=== PATIENT | female | born 1990 | race Caucasian/White ===

== ENCOUNTER 2020-02-09 10:59 | Outpatient (CLI) | payer OTHER, SELFPAY ==
[2020-02-09 11:58] LABS: Alanine Aminotransferase 16 U/L (4-35); Albumin Level 4.5 g/dL (3.5-5.1); Alkaline Phosphatase 58 U/L (38-126); Anion Gap 7 mmol/L (8-16); Aspartate Amino Transferase 24 U/L (14-36); Bilirubin,Total 0.5 mg/dL (0.2-1.3); Blood Urea Nitrogen 9 mg/dL (7-17); Calcium 9.6 mg/dL (8.4-10.2); Carbon Dioxide 29 mmol/L (22-30); Chloride 104 mmol/L (98-107); Estimated Glomerular Filt Rate > 60; Glucose 92 mg/dL (65-105); Potassium 4.1 mmol/L (3.4-5.0); Sodium 140 mmol/L (137-145)
[2020-02-11 23:18] LABS: Lamotrigine Lamictal 9.7 mcg/mL (4.0-18.0)
== END 2020-02-09 11:00 | disposition home or self-care (01) ==
DX: G40.309 Generalized idiopathic epilepsy and epileptic syndromes, not intractable, without status epilepticus (principal)
CPT/HCPCS: 36415; 80053; 80175

== ENCOUNTER 2020-02-14 17:14 | Outpatient (CLI) | payer OTHER, SELFPAY ==
[2020-02-14 17:38] LABS: Basophils Absolute Auto 0.1 K/mm3 (0.0-0.1); Basophils Percent Auto 0.8 % (0.2-1.2); Eosinophils Absolute Auto 0.4 K/mm3 (0-0.3); Eosinophils Percent Auto 3.9 % (0-4.4); Hematocrit 40.9 % (37.0-47.0); Hemoglobin 14.1 g/dL (12.0-15.0); Immature Granulocyte Absolute 0.03 K/mm3 (0.00-0.031); Immature Granulocyte Percent A 0.3 % (0-0.5); Lymphocytes Percent Auto 25.3 % (18.3-44.2); Mean Corpuscular HGB Conc 34.5 g/dl (32-36); Mean Corpuscular Hemoglobin 31.4 pg (26-34); Mean Corpuscular Volume 91.1 fl (80-100); Mean Platelet Volume 9.5 fl (7.4-10.4); Monocytes Absolute Auto 0.7 K/mm3 (0.1-0.6); Monocytes Percent Auto 6.3 % (2.6-8.5); Neutrophils Absolute Auto 6.5 K/mm3 (1.3-6.7); Neutrophils Percent Auto 63.4 % (45.5-73.1); Platelet Count Result 289 k/mm3 (150-375); Red Blood Count 4.49 M/mm3 (4.2-5.4); Red Cell Distribution Width 12.4 % (11.5-14.5); White Blood Count 10.3 K/mm3 (4.5-10.0)
[2020-02-14 17:50] LABS: Alanine Aminotransferase 15 U/L (4-35); Albumin Level 4.5 g/dL (3.5-5.1); Alkaline Phosphatase 63 U/L (38-126); Anion Gap 10 mmol/L (8-16); Aspartate Amino Transferase 23 U/L (14-36); Bilirubin,Total 0.7 mg/dL (0.2-1.3); Blood Urea Nitrogen 14 mg/dL (7-17); Carbon Dioxide 22 mmol/L (22-30); Chloride 106 mmol/L (98-107); Estimated Glomerular Filt Rate > 60; Glucose 89 mg/dL (65-105); Potassium 3.8 mmol/L (3.4-5.0); Sodium 138 mmol/L (137-145)
[2020-02-17 11:36] LABS: Lamotrigine Lamictal 5.9 mcg/mL (4.0-18.0)
== END 2020-02-14 17:15 | disposition home or self-care (01) ==
DX: G40.309 Generalized idiopathic epilepsy and epileptic syndromes, not intractable, without status epilepticus (principal)
CPT/HCPCS: 36415; 80053; 80175; 80203; 85025

== ENCOUNTER 2020-08-09 14:12 | Outpatient (CLI) | payer OTHER, SELFPAY ==
[2020-08-09 14:48] LABS: Basophils Absolute Auto 0.1 K/mm3 (0.0-0.1); Basophils Percent Auto 0.6 % (0.2-1.2); Eosinophils Absolute Auto 0.2 K/mm3 (0-0.3); Eosinophils Percent Auto 2.8 % (0-4.4); Hematocrit 40.1 % (37.0-47.0); Hemoglobin 13.4 g/dL (12.0-15.0); Immature Granulocyte Absolute 0.03 K/mm3 (0.00-0.031); Immature Granulocyte Percent A 0.4 % (0-0.5); Lymphocytes Absolute Auto 2.46 K/mm3 (0.9-3.2); Lymphocytes Percent Auto 29.5 % (18.3-44.2); Mean Corpuscular HGB Conc 33.4 g/dl (32-36); Mean Corpuscular Hemoglobin 31.1 pg (26-34); Mean Platelet Volume 9.5 fl (7.4-10.4); Monocytes Absolute Auto 0.6 K/mm3 (0.1-0.6); Monocytes Percent Auto 6.6 % (2.6-8.5); Neutrophils Percent Auto 60.1 % (45.5-73.1); Platelet Count Result 291 k/mm3 (150-375); Red Blood Count 4.31 M/mm3 (4.2-5.4); Red Cell Distribution Width 12.6 % (11.5-14.5); White Blood Count 8.3 K/mm3 (4.5-10.0)
[2020-08-09 14:58] LABS: Alanine Aminotransferase 16 U/L (4-35); Albumin Level 4.9 g/dL (3.5-5.1); Alkaline Phosphatase 60 U/L (38-126); Anion Gap 11 mmol/L (8-16); Aspartate Amino Transferase 33 U/L (14-36); Bilirubin,Total 0.4 mg/dL (0.2-1.3); Blood Urea Nitrogen 13 mg/dL (7-17); Calcium 9.8 mg/dL (8.4-10.2); Carbon Dioxide 28 mmol/L (22-30); Chloride 105 mmol/L (98-107); Estimated Glomerular Filt Rate > 60; Glucose 86 mg/dL (65-105); Potassium 3.7 mmol/L (3.4-5.0); Sodium 144 mmol/L (137-145)
[2020-08-11 22:52] LABS: Lamotrigine Lamictal 3.9 mcg/mL (4.0-18.0)
== END 2020-08-09 14:13 | disposition home or self-care (01) ==
DX: G40.309 Generalized idiopathic epilepsy and epileptic syndromes, not intractable, without status epilepticus (principal); Z51.81 Encounter for therapeutic drug level monitoring; Z79.899 Other long term (current) drug therapy
CPT/HCPCS: 36415; 80053; 80175; 80203; 85025

== ENCOUNTER 2020-12-23 08:36 | Outpatient (CLI) | payer OTHER, SELFPAY ==
--- NOTE | ~2020-12-23 | US_ITS ---
US OB <= 14 weeks fetus DATE: 12/23/2020 09:10 INDICATION: Gestational age determination TECHNIQUE: Real-time imaging and Doppler analysis COMPARISON: None FINDINGS: The uterus measures 10.6 cm height, 9.1 cm transverse and 7.6 cm anteroposterior dimension. Live mon intrauterine gestation is identified, with yolk sac and pole. heart rate of 171 bpm. [place]-rump length measures 3.32 cm, consistent with estimated gestational age of 10 weeks 2 days +/- 6 days; BREANNA: 07/19/2021. No pelvic mass or abnormal pelvic fluid collection is evident. IMPRESSION: Estimated gestational age of 10 weeks 2 days +/- 6 days; BREANNA: 07/19/2021 Reviewed, dictated and finalized at [facility]. Reviewed, dictated and finalized at [facility]. IMPRESSION: Estimated gestational age of 10 weeks 2 days +/- 6 days; BREANNA: 2021
== END 2020-12-23 08:37 | disposition home or self-care (01) ==
LOC: ANHIMG 08:44
PROVIDERS: PCP Internal Medicine; Visit Provider Obstetrics & Gynecology
DX: N91.2 Amenorrhea, unspecified (principal); Z3A.10 10 weeks gestation of pregnancy
CPT/HCPCS: 76801

== ENCOUNTER 2021-01-04 10:31 | Outpatient (CLI) | payer OTHER, SELFPAY ==
[2021-01-04 11:21] LABS: Basophils Absolute Auto 0.1 K/mm3 (0.0-0.1); Basophils Percent Auto 0.5 % (0.2-1.2); Eosinophils Absolute Auto 0.2 K/mm3 (0-0.3); Eosinophils Percent Auto 2.3 % (0-4.4); Hematocrit 35.7 % (37.0-47.0); Hemoglobin 12.5 g/dL (12.0-15.0); Immature Granulocyte Absolute 0.03 K/mm3 (0.00-0.031); Immature Granulocyte Percent A 0.3 % (0-0.5); Lymphocytes Absolute Auto 2.21 K/mm3 (0.9-3.2); Lymphocytes Percent Auto 24.1 % (18.3-44.2); Mean Corpuscular Hemoglobin 32.6 pg (26-34); Mean Platelet Volume 9.8 fl (7.4-10.4); Monocytes Absolute Auto 0.4 K/mm3 (0.1-0.6); Monocytes Percent Auto 4.8 % (2.6-8.5); Neutrophils Absolute Auto 6.2 K/mm3 (1.3-6.7); Platelet Count Result 260 k/mm3 (150-375); Red Blood Count 3.84 M/mm3 (4.2-5.4); White Blood Count 9.2 K/mm3 (4.5-10.0)
[2021-01-04 12:08] LABS: Hepatitis B Surface Antigen Negative (Negative); Rubella IgG Antibody 15.4 IU/ML; Vitamin D 25 Hydroxy 99.9 ng/mL
[2021-01-04 12:16] LABS: HIV 1/2 Ab P24 Ag Result Negative (Negative)
[2021-01-04 12:22] LABS: Hepatitis C Virus Antibody Negative (Negative)
[2021-01-04 15:19] LABS: Rapid Plasma Reagin Non-Reactive (NonReactive)
[2021-01-06 20:38] LABS: Lamotrigine Lamictal 7.7 mcg/mL (4.0-18.0)
== END 2021-01-04 10:32 | disposition home or self-care (01) ==
PROVIDERS: PCP Internal Medicine; Visit Provider Obstetrics & Gynecology
DX: Z36.9 Encounter for antenatal screening, unspecified (principal)
CPT/HCPCS: 36415; 80175; 80203; 82306; 83036; 85025; 86592; 86703; 86762; 86803; 86850; 86900; 86901; 87340; G0432

== ENCOUNTER 2021-02-15 08:39 | Outpatient (CLI) | payer OTHER, SELFPAY ==
[2021-02-15 10:14] LABS: Vitamin D 25 Hydroxy 64.1 ng/mL
== END 2021-02-15 08:40 | disposition home or self-care (01) ==
LOC: ANHLAB 08:41
PROVIDERS: PCP Internal Medicine; Visit Provider Obstetrics & Gynecology
DX: E55.9 Vitamin D deficiency, unspecified (principal)
CPT/HCPCS: 36415; 82306

== ENCOUNTER 2021-03-26 12:20 | Outpatient (RCR) | payer OTHER, SELFPAY ==
[2021-03-28 16:52] LABS: Lamotrigine Lamictal 5.2 mcg/mL (4.0-18.0)
== END 2021-06-24 23:59 | disposition home or self-care (01) ==
LOC: ANHLAB 12:20
PROVIDERS: PCP Internal Medicine
DX: R56.9 Unspecified convulsions (principal)
CPT/HCPCS: 36415; 80175; 80203

== ENCOUNTER 2021-06-25 12:27 | Outpatient (RCR) | payer OTHER, SELFPAY ==
[2021-06-27 15:43] LABS: Lamotrigine Lamictal 5.8 mcg/mL (4.0-18.0)
== END 2021-09-23 23:59 | disposition home or self-care (01) ==
LOC: ANHLAB 12:27
PROVIDERS: PCP Internal Medicine
DX: G40.309 Generalized idiopathic epilepsy and epileptic syndromes, not intractable, without status epilepticus (principal); G40.909 Epilepsy, unspecified, not intractable, without status epilepticus
CPT/HCPCS: 36415; 80175; 80203

== ENCOUNTER 2021-07-02 12:03 | Inpatient (IN) | payer OTHER, SELFPAY ==
[2021-07-02] VITALS (68 sets, daily range): BP systolic 101–141; BP diastolic 31–120; PULSE 61–137; TEMP 36.1–36.6; O2SAT 90–100; BMI 26.4
--- NOTE | 2021-07-02 12:32 | LDADM ---
This patient, Yoselin Bar, was admitted to Labor/Delivery/Recovery 103 on 07/02/21 at 12:03. Plans for labor, pain management and were discussed with patient. Patient/family oriented to hospital policies and general routines including ID bracelet, bed and alarms, visiting hours, pain management, procedures, bathroom and other care routines, personal items, smoking policy, room service/diet and guest tray routines, security routines, and visiting hours. Patient/Family are encouraged to report perceived risks to care and to ask questions if they do not understand what they are told or what they should do. See OBIX for further documentation.
[2021-07-02 12:57] LABS: Basophils Absolute Auto 0.1 K/mm3 (0.0-0.1); Basophils Percent Auto 0.5 % (0.2-1.2); Eosinophils Absolute Auto 0.2 K/mm3 (0-0.3); Eosinophils Percent Auto 1.4 % (0-4.4); Hematocrit 35.8 % (37.0-47.0); Hemoglobin 12.2 g/dL (12.0-15.0); Immature Granulocyte Absolute 0.25 K/mm3 (0.00-0.031); Immature Granulocyte Percent A 1.7 % (0-0.5); Lymphocytes Absolute Auto 2.67 K/mm3 (0.9-3.2); Lymphocytes Percent Auto 18.2 % (18.3-44.2); Mean Corpuscular HGB Conc 34.1 g/dl (32-36); Mean Corpuscular Volume 96.8 fl (80-100); Mean Platelet Volume 10.2 fl (7.4-10.4); Monocytes Absolute Auto 0.8 K/mm3 (0.1-0.6); Monocytes Percent Auto 5.3 % (2.6-8.5); Neutrophils Absolute Auto 10.7 K/mm3 (1.3-6.7); Neutrophils Percent Auto 72.9 % (45.5-73.1); Platelet Count Result 257 k/mm3 (150-375); White Blood Count 14.6 K/mm3 (4.5-10.0)
[2021-07-02] MEDS: ceFAZolin 2 GM/D5W 50 ML 2 GM/50 ML BAG IVPB (13:39)
[2021-07-02] MEDS: LACTATED RINGERS 1,000 ML 125 ML IV CONT ×3 (13:39→21:54)
[2021-07-02] MEDS: DINOPROSTONE 10 MG VAG INSERT VAGINAL (13:56)
[2021-07-02] MEDS: fentaNYL CITRATE INJ (*CRX) 100 MCG/2 ML VIAL 50 MCG IV PUSH ×2 (17:09→21:43)
[2021-07-02] MEDS: AMPICILLIN 2 GM/NS 100 ML 2 GM/100 ML BAG IVPB (18:38)
[2021-07-02] MEDS: ZONISAMIDE 100 MG CAPSULE 200 MG PO (21:44)
[2021-07-02] MEDS: lamoTRIgine 50 MG TABLET PO (21:44)
[2021-07-02] MEDS: lamoTRIgine 100 MG TABLET PO (21:44)
--- NOTE | 2021-07-02 21:59 | P.HP_ITS ---
Obstetrics - Admit Note Admission Note: record reviewed. No pertinent additions to the history and/or any subsequent changes in the physical findings that are not consistent with the expected course of the were found. Medical induction of labor for IUGR in the 7th %. 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 Currently on aspirin, lamotrigine, zonisamide, folic acid, and valtrex. Anticipate vaginal delivery. Additions to the history and/or subsequent changes in the physical findings follow. None.
--- NOTE | 2021-07-02 22:37 | PM.OBPNLAB ---
Pain Control Date/time seen: 07/02/21 22:37 3/50/-3 AROM 2234 small amount of Clear odorless fluid. Anticipate vaginal delivery.
[2021-07-02] MEDS: AMPICILLIN 1 GM/NS 50 ML 1 GM/50 ML BAG IVPB (23:12)
[2021-07-03] VITALS (25 sets, daily range): BP systolic 100–133; BP diastolic 55–87; PULSE 48–102; RESP 16–18; TEMP 36.2–36.8; O2SAT 93–100
[2021-07-03] MEDS: LACTATED RINGERS 1,000 ML 125 ML IV CONT (00:43)
[2021-07-03] MEDS: ONDANSETRON INJ 4 MG/2 ML VIAL IV PUSH (00:56)
[2021-07-03] MEDS: OXYTOCIN 30 UNITS/NS 500 ML 30 UNITS/500 ML BAG 999 UNITS IV CONT (01:20)
--- NOTE | 2021-07-03 01:31 | PM.OBPRVD ---
OB - Delivery Note Procedure Delivery date: 07/03/21 Procedure: Vaginal delivery Events: Intrauterine Growth Restriction (IUGR) (7th%) and Positive Group B Strep (GBS) Induction method: AROM, Per Pitocin Protocol and Per Cervidil Protocol Delivery monitor: External FHT and External Uterine Route of delivery: Laceration Description: None Specimen: Yes Quantitative Blood Loss (ml): 68 Anesthesia type: Epidural Disposition: Floor Complications: Vaginal delivery. Baby to warmer for observation. Mom in stable condition. Baby Date of : 07/03/21 Time of : 01:16 Weeks of gestation at delivery: 37 Infant gender: Male Weight (pounds): 6 Weight (ounces): 1 presentation: vertex position: Right Occiput Anterior score one minute: 6 score five minutes: 9
[2021-07-03] MEDS: IBUPROFEN 600 MG TABLET PO ×2 (06:47→11:11)
[2021-07-03] MEDS: WITCH HAZEL 40 PADS 1 PAD TOPICAL (06:51)
[2021-07-03] MEDS: BENZOCAINE 20% AER SPR (*SP) 56 GM CAN 1 SPRAY TOPICAL (06:52)
--- NOTE | 2021-07-03 06:55 | PC.NURSE ---
Pt voided and then to nursery per wheelchair to see who is in level II nursery.
[2021-07-03 07:32] LABS: Rapid Plasma Reagin Non-Reactive (NonReactive)
--- NOTE | 2021-07-03 08:00 | PC.NURSE ---
Patient transferred to post room #278 via wheelchair. Support person present. Oriented to unit, room, information board, rooming in, admission packet and security measures. Patient verbalizes understanding.
[2021-07-03] MEDS: MULTIVIT/MIN/PREN/FOL AC/IRON TABLET 1 TAB PO (11:10)
[2021-07-03] MEDS: lamoTRIgine 100 MG TABLET PO ×2 (11:11→20:43)
[2021-07-03] MEDS: lamoTRIgine 50 MG TABLET PO ×2 (11:11→20:43)
[2021-07-03] MEDS: ACETAMINOPHEN 325 MG TABLET 650 MG PO (14:53)
--- NOTE | 2021-07-03 15:01 | PC.NURSE ---
0945 - Breast pump provided due to separation. Primary RN reported that patient will call out when she is ready to pump. Infant was transferred and mom wants to rest.
[2021-07-03] MEDS: ZONISAMIDE 100 MG CAPSULE 200 MG PO (20:43)
[2021-07-04 05:52] LABS: Hematocrit 33.3 % (37.0-47.0); Hemoglobin 11.3 g/dL (12.0-15.0)
--- NOTE | 2021-07-04 07:39 | P.PNOB_ITS ---
OB - PN: Subj Subjective Date/time seen: 07/04/21 07:39 Patient comments: no complaints baby status: doing well [place] feeding status: pumping and storing OB - PN: Obj Data Labs CBC & Chem 7: 07/04/21 04:38 Labs: Laboratory Results - last 24 hr 07/04/21 04:38 Hgb 11.3 L Hct 33.3 L OB - PN A/P Plan day: 1 Plan: routine care and discharge home Comments: Baby transferred to [facility] Time Spent With Patient Time: Total time spent is greater than 50% in coordination of care (as documented) at patient's floor/unit and/or counseling patient: Review of Systems Review of Systems: All systems reviewed & are unremarkable except as noted in HPI and below Exam Const: General: cooperative, healthy appearing and no acute distress
--- NOTE | 2021-07-04 07:42 | PM.OBDSVD ---
DS: Admitting Diagnosis Discharge Date 07/04/2021 Admitting Diagnosis IOL IUGR OB - DS: Summary OB Procedures : None OB Procedures Intrapartum: Spontaneous Vag Delivery OB Procedures: : None Time Spent with Patient Time attestation: Total time spent providing and/or coordinating discharge services: DS: Data Data Completed and Pending Pending studies at discharge: Pending at discharge 07/03/21 01:20 Surgical [PTH] Routine Labs on day of discharge: Labs from last 24 hours 07/04/21 04:38 Hgb 11.3 L Hct 33.3 L Discharge Plan Discharge Attending physician on discharge: Cain Francisco Consulting providers: Charla Baez Discharging Clinician: Charla Baez Patient Disposition: Home, Self-Care Activity: pelvic rest Diet: regular Patient Instructions: Antibiotic Form Stand Alone Forms: General Discharge Information Follow-up/Referrals: Charla Baez, CNM [Certified Nurse Automation Controls Expert] - 4 Weeks Discharge Medications: Continued PNV [id number] [] 28 mg iron- 800 mcg Tablet 1 tablet PO DAILY RF: 0 lamotrigine 150 mg Tablet 150 mg PO BID RF: 0 zonisamide 100 mg Capsule 200 mg PO DAILY RF: 0 folic acid 1 mg Tablet 1 mg PO DAILY RF: 0 cholecalciferol (vitamin D3) [Vitamin D3] 50 mcg (2,000 unit) Capsule 50 mcg PO DAILY RF: 0 Discontinued valacyclovir 500 mg Tablet 500 mg PO Q12H RF: 0 aspirin 81 mg Tablet 81 mg PO DAILY RF: 0 Date of admission: 07/02/21 12:03 Primary Care Provider: Eliezer,Carlene Admitting Provider: Cain Francisco Attending physician on admission: Cain Francisco Condition: Stable
[2021-07-04 08:05] VITALS: BP 127/80; PULSE 54; RESP 16; TEMP 36.2; O2SAT 97
[2021-07-04] MEDS: MULTIVIT/MIN/PREN/FOL AC/IRON TABLET 1 TAB PO (08:50)
[2021-07-04] MEDS: lamoTRIgine 100 MG TABLET PO (08:51)
[2021-07-04] MEDS: lamoTRIgine 50 MG TABLET PO (08:51)
[2021-07-04] MEDS: IBUPROFEN 600 MG TABLET PO (08:51)
--- NOTE | 2021-07-04 09:29 | PC.NURSE ---
Patient instructed on viewing the discharge video Mother & Baby Care, The First Two Weeks . Patient was given the opportunity and encouraged to ask questions. Patient verbalized understanding of information shared and has been given the mother/baby guide for home reference.
--- NOTE | 2021-07-04 10:17 | PC.NURSE ---
No nurse follow-up needed per Karen Baez
--- NOTE | 2021-07-04 15:54 | PC.NURSE ---
This morning mother states she is following a consistent pumping schedule. She is ready to go see her infant at [facility] and is excited about the increase of colostrum that she has pumped for her baby. Mom and baby guide/ Hi website was referred to for resource information regarding mom and baby care at home. Mother voiced understanding of information and to call provider if needed.
== END 2021-07-04 11:47 | disposition home or self-care (01) | DRG 560 ==
LOC: ANHLDR 12:06 → ANHOB2 07-03 08:03
PROVIDERS: Advanced Practice Midwife; Admitting Provider Obstetrics & Gynecology; PCP Internal Medicine; Visit Provider Obstetrics & Gynecology
DX: O36.5930 Maternal care for other known or suspected poor fetal growth, third trimester, not applicable or unspecified (principal); O99.824 Streptococcus B carrier state complicating childbirth; Z3A.37 37 weeks gestation of pregnancy; Z37.0 Single live birth
CPT/HCPCS: 36415; 85014; 85018; 85025; 86592; 86850; 86900; 86901; 88307; A9270; J0290; J0690; J2405; J2590; J2795; J3010; J7120